=== PATIENT | male | born 1990 | race Caucasian/White ===

== ENCOUNTER → 2016-07-20 | Outpatient (CLI) | payer OTHER ==
[2016-07-20 10:10] LABS: BASO % 0.8 % (0.0-1.0); EOS # 0.2 K/mm3 (0.0-0.50); EOS % 3.2 % (0.0-3.0); LARGE UNSTAINED CELL # 0.1 K/mm3 (0.0-0.4); LARGE UNSTAINED CELL % 3.1 % (0.0-4.0); LYMPH # 2.7 K/mm3 (1.5-6.5); LYMPH % 54.7 % (24.0-44.0); MEAN CORPUSCULAR HEMOGLOBIN 29.6 pg (27.0-33.0); MEAN CORPUSCULAR HGB CONC 33.2 g/dl (32.0-36.5); MEAN CORPUSCULAR VOLUME 89.2 fl (80.0-96.0); MONO # 0.3 K/mm3 (0.0-0.8); MONO % 5.7 % (0.0-5.0); NEUTROPHILS # 1.5 K/mm3 (1.8-7.7); NEUTROPHILS % 32.5 % (36.0-66.0); PLATELET COUNT, AUTOMATED 149 k/mm3 (150-450); RED CELL DISTRIBUTION WIDTH 13.3 % (11.5-14.5); WHITE BLOOD COUNT 4.7 K/mm3 (4.0-10.0)
[2016-07-20 10:38] LABS: ALBUMIN 4.1 GM/DL (3.2-5.2); ALBUMIN/GLOBULIN RATIO 1.21 (1.00-1.93); ALKALINE PHOSPHATASE 56 U/L (45-117); ALT/SGPT 144 U/L (12-78); ANION GAP 5 MEQ/L (8-16); AST/SGOT 58 U/L (15-37); BILIRUBIN,TOTAL 0.4 MG/DL (0.2-1.0); BLOOD UREA NITROGEN 16 MG/DL (7-18); CALCIUM LEVEL 9.3 MG/DL (8.5-10.1); CARBON DIOXIDE LEVEL 29 MEQ/L (21-32); CHLORIDE LEVEL 107 MEQ/L (98-107); CREATININE FOR GFR 0.93 MG/DL (0.70-1.30); GLOMERULAR FILTRATION RATE > 60.0 (>60); GLUCOSE, FASTING 95 MG/DL (70-105); SODIUM LEVEL 141 MEQ/L (136-145); TOTAL PROTEIN 7.5 GM/DL (6.4-8.2)
== END ==
LOC: M LAB 09:26
PROVIDERS: ATTEND Nurse Practitioner Family
DX: Z02.83 Encounter for blood-alcohol and blood-drug test (principal)

== ENCOUNTER → 2016-08-13 | Outpatient (CLI) | payer OTHER ==
[2016-08-14 09:43] LABS: HEPATITIS B SURFACE ANTIBODY POSITIVE (POSITIVE)
[2016-08-18 08:06] LABS: ALT 342 IU/L (0-55); GGT 35 IU/L (0-65); HAPTOGLOBIN 108 mg/dL (34-200); HEPATITIS C QUANTITATION 91410 IU/mL (.); HEPATITIS C VIRUS GENOTYPE 1a (.); NECROINFLAM SCORE 0.88 (0.00-0.17); NECROINFLAMM GRADE A3-Severe activity (.); TOTAL BILIRUBIN 0.1 mg/dL (0.0-1.2)
== END ==
LOC: M LAB 10:20
PROVIDERS: ATTEND Nurse Practitioner Family
DX: B18.2 Chronic viral hepatitis C (principal); B16.9 Acute hepatitis B without delta-agent and without hepatic coma; B15.9 Hepatitis A without hepatic coma

== ENCOUNTER → 2016-09-17 | Outpatient (REF) | payer OTHER | LOC: M SFHCPLAZ 09:40 | PROVIDERS: ATTEND Internal Medicine Infectious Disease | DX: B18.2 Chronic viral hepatitis C (principal) ==

== ENCOUNTER → 2016-11-25 | Outpatient (CLI) | payer OTHER ==
[2016-11-25 12:28] LABS: ALBUMIN 3.9 GM/DL (3.2-5.2); ALBUMIN/GLOBULIN RATIO 1.11 (1.00-1.93); ALKALINE PHOSPHATASE 59 U/L (45-117); ALT/SGPT 42 U/L (12-78); AST/SGOT 22 U/L (15-37); BILIRUBIN,DIRECT < 0.1 MG/DL (0.0-0.2); BILIRUBIN,TOTAL 0.3 MG/DL (0.2-1.0); TOTAL PROTEIN 7.4 GM/DL (6.4-8.2)
[2016-11-27 10:13] LABS: HEPATITIS C QUANTITATION HCV Not Detected IU/mL (.)
== END ==
LOC: M LAB 09:41
PROVIDERS: ATTEND Nurse Practitioner Family
DX: B18.2 Chronic viral hepatitis C (principal)

== ENCOUNTER → 2017-04-27 | Outpatient (CLI) | payer OTHER ==
[2017-04-27 20:44] LABS: BASO % 0.5 % (0.0-1.0); EOS # 0.3 10^3/uL (0.0-0.50); EOS % 3.6 % (0.0-3.0); HEMATOCRIT 41.8 % (42.0-52.0); HEMOGLOBIN 13.8 g/dl (14.0-18.0); IMMATURE GRANULOCYTE % 0.2 % (0-0); LYMPH # 3.9 10^3/uL (1.5-6.5); LYMPH % 47.3 % (24.0-44.0); MEAN CORPUSCULAR HEMOGLOBIN 29.9 pg (27.0-33.0); MEAN CORPUSCULAR VOLUME 90.7 fl (80.0-96.0); MONO # 0.5 10^3/uL (0.0-0.8); MONO % 6.3 % (0.0-5.0); NEUTROPHILS # 3.5 10^3/uL (1.8-7.7); NEUTROPHILS % 42.1 % (36.0-66.0); PLATELET COUNT, AUTOMATED 302 10^3/uL (150-450); RED BLOOD COUNT 4.61 10^6/uL (4.30-6.10); RED CELL DISTRIBUTION WIDTH 12.6 % (11.5-14.5); WHITE BLOOD COUNT 8.3 10^3/uL (4.0-10.0)
[2017-04-27 21:01] LABS: ALBUMIN 4.1 GM/DL (3.2-5.2); ALBUMIN/GLOBULIN RATIO 1.14 (1.00-1.93); ALKALINE PHOSPHATASE 44 U/L (45-117); ALT/SGPT 23 U/L (12-78); AST/SGOT 22 U/L (7-37); BILIRUBIN,DIRECT < 0.1 MG/DL (0.0-0.2); BILIRUBIN,TOTAL 0.3 MG/DL (0.2-1.0); TOTAL PROTEIN 7.7 GM/DL (6.4-8.2)
[2017-04-30 10:16] LABS: HEPATITIS C QUANTITATION HCV Not Detected IU/mL (.)
== END ==
LOC: M LAB 17:35
DX: B18.2 Chronic viral hepatitis C (principal)
CPT/HCPCS: 80076

== ENCOUNTER → 2017-06-08 | Outpatient (CLI) | payer OTHER ==
[2017-06-08 10:26] LABS: HEMATOCRIT 40.2 % (42.0-52.0); HEMOGLOBIN 13.6 g/dl (14.0-18.0); MEAN CORPUSCULAR HEMOGLOBIN 29.8 pg (27.0-33.0); MEAN CORPUSCULAR HGB CONC 33.8 g/dl (32.0-36.5); PLATELET COUNT, AUTOMATED 201 10^3/uL (150-450); RED BLOOD COUNT 4.57 10^6/uL (4.30-6.10); RED CELL DISTRIBUTION WIDTH 12.3 % (11.5-14.5); WHITE BLOOD COUNT 6.2 10^3/uL (4.0-10.0)
[2017-06-08 11:34] LABS: ALBUMIN/GLOBULIN RATIO 1.21 (1.00-1.93); ALKALINE PHOSPHATASE 50 U/L (45-117); ALT/SGPT 26 U/L (12-78); ANION GAP 5 MEQ/L (8-16); AST/SGOT 23 U/L (7-37); BILIRUBIN,TOTAL 0.4 MG/DL (0.2-1.0); BLOOD UREA NITROGEN 14 MG/DL (7-18); CALCIUM LEVEL 9.3 MG/DL (8.5-10.1); CARBON DIOXIDE LEVEL 33 MEQ/L (21-32); CHLORIDE LEVEL 106 MEQ/L (98-107); CREATININE FOR GFR 0.74 MG/DL (0.70-1.30); GLOMERULAR FILTRATION RATE > 60.0 (>60); GLUCOSE, FASTING 96 MG/DL (70-100); POTASSIUM SERUM 4.4 MEQ/L (3.5-5.1); SODIUM LEVEL 144 MEQ/L (136-145); TOTAL PROTEIN 7.3 GM/DL (6.4-8.2)
[2017-06-08 12:29] LABS: CHLAMYDIA DNA AMPLIFICATION NEGATIVE (NEGATIVE); GC DNA AMPLIFICATION NEGATIVE (NEGATIVE)
[2017-06-09 10:36] LABS: HEPATITIS B SURFACE ANTIGEN NEGATIVE (NEGATIVE)
[2017-06-09 10:46] LABS: HIV 1&2 SCREEN CENTAUR NEGATIVE (NEGATIVE)
[2017-06-09 10:53] LABS: HEPATITIS C VIRUS ABY INDEX > 11.0 INDEX (<0.8)
== END ==
LOC: M LAB 09:56
DX: F11.20 Opioid dependence, uncomplicated (principal)
CPT/HCPCS: 93005

== ENCOUNTER 2017-11-05 15:20 | Emergency (ER) | payer OTHER ==
[2017-11-05] MEDS: predniSONE 20 MG TAB PO (17:05)
[2017-11-05] MEDS: IPRATROPIUM 0.5MG/ALBUTEROL 2.5MG INH SOL UD 3ML (DUONEB)(J7620) NEB (17:30)
[2017-11-05] MEDS: ALBUTEROL SULFATE 2.5 MG/0.5 ML INH NEB SOLN NEB (17:30)
== END 2017-11-05 18:02 | disposition home or self-care (01) ==
LOC: M ED 15:20
DX: J45.901 Unspecified asthma with (acute) exacerbation (principal); J06.9 Acute upper respiratory infection, unspecified; Z79.891 Long term (current) use of opiate analgesic; Z88.1 Allergy status to other antibiotic agents
CPT/HCPCS: 71046

== ENCOUNTER → 2018-03-08 | Outpatient (REF) | payer OTHER ==
[2018-03-08 18:12] LABS: ALBUMIN 3.9 GM/DL (3.2-5.2); ALBUMIN/GLOBULIN RATIO 1.11 (1.00-1.93); ALKALINE PHOSPHATASE 57 U/L (45-117); ALT/SGPT 33 U/L (12-78); ANION GAP 7 MEQ/L (8-16); AST/SGOT 16 U/L (7-37); BILIRUBIN,TOTAL 0.2 MG/DL (0.2-1.0); BLOOD UREA NITROGEN 19 MG/DL (7-18); CALCIUM LEVEL 8.7 MG/DL (8.5-10.1); CARBON DIOXIDE LEVEL 28 MEQ/L (21-32); CHLORIDE LEVEL 108 MEQ/L (98-107); CREATININE FOR GFR 0.94 MG/DL (0.70-1.30); GLOMERULAR FILTRATION RATE > 60.0 (>60); GLUCOSE, FASTING 91 MG/DL (70-100); POTASSIUM SERUM 3.9 MEQ/L (3.5-5.1); SODIUM LEVEL 143 MEQ/L (136-145); TOTAL PROTEIN 7.4 GM/DL (6.4-8.2)
[2018-03-08 18:32] LABS: BASO # 0.1 10^3/uL (0.0-0.2); BASO % 0.5 % (0.0-1.0); EOS # 0.3 10^3/uL (0.0-0.50); EOS % 2.6 % (0.0-3.0); HEMATOCRIT 41.6 % (42.0-52.0); IMMATURE GRANULOCYTE % 0.1 % (0-3.0); LYMPH # 3.2 10^3/uL (1.5-6.5); LYMPH % 32.5 % (24.0-44.0); MEAN CORPUSCULAR HEMOGLOBIN 29.9 pg (27.0-33.0); MEAN CORPUSCULAR HGB CONC 33.7 g/dl (32.0-36.5); MEAN CORPUSCULAR VOLUME 88.9 fl (80.0-96.0); MONO # 0.8 10^3/uL (0.0-0.8); MONO % 7.6 % (0.0-5.0); NEUTROPHILS # 5.6 10^3/uL (1.8-7.7); NEUTROPHILS % 56.7 % (36.0-66.0); PLATELET COUNT, AUTOMATED 247 10^3/uL (150-450); RED BLOOD COUNT 4.68 10^6/uL (4.30-6.10); RED CELL DISTRIBUTION WIDTH 13.2 % (11.5-14.5)
== END ==
LOC: M LAB REF 17:13
DX: Z13.9 Encounter for screening, unspecified (principal)
CPT/HCPCS: 84443

== ENCOUNTER → 2018-07-29 | Outpatient (REF) | payer OTHER ==
[~2018-07-29] MED LIST: CLON-412; FLUV100T2; IBUP80TA; MUCI600T37 PO; NICO2GUM40; NICO2GUM50 PO; POLY33503; PRED10TA2 PO; SUBO2MIS; SUBO8MIS; VENTAER; VENTAER INH
[2018-07-29 17:27] LABS: FREE THYROXINE INDEX 2.2 % (1.4-3.8); THYROID STIMULATING HORMONE 3.34 uIU/ML (0.358-3.740)
== END ==
LOC: M LAB REF 16:54
PROVIDERS: ATTEND Nurse Practitioner Family
DX: Z13.9 Encounter for screening, unspecified (principal)

== ENCOUNTER → 2018-08-02 | Outpatient (REF) | payer OTHER, MEDICAID | LOC: M LAB REF 19:01 | PROVIDERS: ATTEND Nurse Practitioner Family | DX: Z13.9 Encounter for screening, unspecified (principal) ==

== ENCOUNTER → 2020-09-05 | Outpatient (REF) | payer OTHER, MEDICAID ==
[2020-09-05 12:36] LABS: BASO % 0.7 % (0.0-1.0); EOS # 0.1 10^3/uL (0.0-0.5); EOS % 2.6 % (0.0-3.0); HEMATOCRIT 42.4 % (42.0-52.0); HEMOGLOBIN 13.9 g/dl (13.5-17.5); LYMPH # 2.2 10^3/uL (1.5-5.0); MEAN CORPUSCULAR HGB CONC 32.8 g/dl (32.0-36.5); MEAN CORPUSCULAR VOLUME 91.6 fl (80.0-96.0); MONO # 0.5 10^3/uL (0.0-0.8); MONO % 9.5 % (2.0-8.0); NEUTROPHILS # 2.6 10^3/uL (1.5-8.5); NEUTROPHILS % 46.8 % (36.0-66.0); PLATELET COUNT, AUTOMATED 222 10^3/uL (150-450); RED BLOOD COUNT 4.63 10^6/uL (4.30-6.10); WHITE BLOOD COUNT 5.5 10^3/uL (4.0-10.0)
[2020-09-05 13:18] LABS: ALBUMIN 4.1 GM/DL (3.2-5.2); ALT/SGPT 27 U/L (12-78); BILIRUBIN,TOTAL 0.5 MG/DL (0.2-1.0); BLOOD UREA NITROGEN 19 MG/DL (7-18); CALCIUM LEVEL 9.4 MG/DL (8.5-10.1); CARBON DIOXIDE LEVEL 30 MEQ/L (21-32); CHLORIDE LEVEL 107 MEQ/L (98-107); CHOLESTEROL LEVEL 191 MG/DL (<200); CREATININE FOR GFR 0.65 MG/DL (0.70-1.30); FREE T4 0.89 NG/DL (0.76-1.46); GLOMERULAR FILTRATION RATE > 60.0 (>60); GLUCOSE, FASTING 89 MG/DL (70-100); HDL CHOLESTEROL 71 MG/DL (>40); LDL CHOLESTEROL 108 MG/DL (<100); NON-HDL-C 120 MG/DL; POTASSIUM SERUM 4.4 MEQ/L (3.5-5.1); SODIUM LEVEL 141 MEQ/L (136-145); TOTAL PROTEIN 7.3 GM/DL (6.4-8.2); TRIGLYCERIDES LEVEL 60 MG/DL (<150)
[2020-09-05 13:29] LABS: TOTAL 25(OH) VITAMIN D 37.4 NG/ML (30.0-100.0)
[2020-09-05 14:26] LABS: HEMOGLOBIN A1c 5.3 %
== END ==
LOC: M LAB REF 11:19
PROVIDERS: ATTEND Nurse Practitioner Family
DX: Z00.01 Encounter for general adult medical examination with abnormal findings (principal); E02 Subclinical iodine-deficiency hypothyroidism; K21.9 Gastro-esophageal reflux disease without esophagitis; J45.909 Unspecified asthma, uncomplicated

== ENCOUNTER 2020-11-21 02:31 | Emergency (ER) | payer OTHER, MEDICAID ==
[~2020-11-21] VITALS: Ht 170.2 cm; Wt 86.0 kg
[2020-11-21 02:32] VITALS: BP 165/90
[2020-11-21 03:29] LABS: BASO % 0.4 % (0.0-1.0); EOS # 0.1 10^3/uL (0.0-0.5); EOS % 0.7 % (0.0-3.0); HEMATOCRIT 43.1 % (42.0-52.0); HEMOGLOBIN 14.4 g/dl (13.5-17.5); LYMPH # 1.9 10^3/uL (1.5-5.0); LYMPH % 26.7 % (24.0-44.0); MEAN CORPUSCULAR HEMOGLOBIN 30.1 pg (27.0-33.0); MEAN CORPUSCULAR HGB CONC 33.4 g/dl (32.0-36.5); MEAN CORPUSCULAR VOLUME 90.2 fl (80.0-96.0); MONO # 0.5 10^3/uL (0.0-0.8); MONO % 7.1 % (2.0-8.0); NEUTROPHILS # 4.7 10^3/uL (1.5-8.5); NEUTROPHILS % 64.8 % (36.0-66.0); PLATELET COUNT, AUTOMATED 238 10^3/uL (150-450); RED BLOOD COUNT 4.78 10^6/uL (4.30-6.10); WHITE BLOOD COUNT 7.2 10^3/uL (4.0-10.0)
[2020-11-21 04:00] LABS: BLOOD UREA NITROGEN 16 MG/DL (7-18); CALCIUM LEVEL 9.2 MG/DL (8.5-10.1); CARBON DIOXIDE LEVEL 28 MEQ/L (21-32); CHLORIDE LEVEL 106 MEQ/L (98-107); CK-MB VALUE MASS 1.8 NG/ML (<3.6); CPK CREATINE PHOSPHOKINASE 195 U/L (39-308); CREATININE FOR GFR 0.77 MG/DL (0.70-1.30); GLOMERULAR FILTRATION RATE > 60.0 (>60); GLUCOSE, FASTING 79 MG/DL (70-100); MB/CK RELATIVE INDEX 0.92 (< OR =4); POTASSIUM SERUM 3.8 MEQ/L (3.5-5.1); SODIUM LEVEL 141 MEQ/L (136-145); TROPONIN I < 0.02 NG/ML (< 0.10)
--- NOTE | 2020-11-21 07:40 | ECGEPIP ---
[facility] - ED Test Date: 2020-11-21 Pat Name: ADRIANNA GRIFFIN Department: Room: - Gender: Male Clinical Massage Therapist: LUIS F : 1990 Requested By: CASSIDY Brock Order Number: [id number] Reading MD: Chandan Ramirez Measurements Intervals [place] Rate: 88 P: 54 MN: 158 QRS: -18 QRSD: 100 T: 16 QT: 366 QTc: 442 Interpretive Statements Normal sinus rhythm MODERATE INTRAVENTRICULAR CONDUCTION DELAY NONSPECIFIC T WAVE ABNORMALITY(S) SIMILAR TO 06/08/17 Electronically Signed on 11-21-2020 7:39:49 EDT by Chandan Ramirez
== END 2020-11-21 04:39 | disposition left against medical advice (07) ==
LOC: M ED 02:31
DX: Z53.21 Procedure and treatment not carried out due to patient leaving prior to being seen by health care provider (principal)

== ENCOUNTER → 2021-01-29 | Outpatient (REF) | payer OTHER, MEDICAID | LOC: M LAB REF 18:24 | PROVIDERS: ATTEND Dermatology | DX: D23.62 Other benign neoplasm of skin of left upper limb, including shoulder (principal) ==

== ENCOUNTER 2021-05-07 21:14 | Inpatient (IN) | payer MEDICAID, OTHER ==
[~2021-05-07] VITALS: Ht 170.2 cm; Wt 87.7 kg
[~2021-05-07 21:14] MED LIST changes: -FLUV100T2; +FLUV100T25
[2021-05-07 23:16] LABS: BASO % 0.2 % (0.0-1.0); EOS # 0.1 10^3/uL (0.0-0.5); EOS % 0.5 % (0.0-3.0); HEMATOCRIT 39.7 % (42.0-52.0); HEMOGLOBIN 13.2 g/dl (13.5-17.5); LYMPH # 1.6 10^3/uL (1.5-5.0); LYMPH % 9.2 % (24.0-44.0); MEAN CORPUSCULAR HEMOGLOBIN 29.5 pg (27.0-33.0); MEAN CORPUSCULAR HGB CONC 33.2 g/dl (32.0-36.5); MEAN CORPUSCULAR VOLUME 88.8 fl (80.0-96.0); MONO % 11.1 % (2.0-8.0); NEUTROPHILS # 13.9 10^3/uL (1.5-8.5); NEUTROPHILS % 78.3 % (36.0-66.0); PLATELET COUNT, AUTOMATED 213 10^3/uL (150-450); RED BLOOD COUNT 4.47 10^6/uL (4.30-6.10); WHITE BLOOD COUNT 17.7 10^3/uL (4.0-10.0)
[2021-05-07 23:43] LABS: ERYTHROCYTE SEDIMENTATION RATE 44 mm/hr (0-15)
[2021-05-07 23:54] LABS: ALBUMIN 3.6 GM/DL (3.2-5.2); ALT/SGPT 54 U/L (12-78); BILIRUBIN,DIRECT 0.2 MG/DL (0.0-0.2); BILIRUBIN,TOTAL 0.4 MG/DL (0.2-1.0); BLOOD UREA NITROGEN 19 MG/DL (7-18); CALCIUM LEVEL 9.1 MG/DL (8.5-10.1); CARBON DIOXIDE LEVEL 28 MEQ/L (21-32); CHLORIDE LEVEL 104 MEQ/L (98-107); CREATININE FOR GFR 0.82 MG/DL (0.70-1.30); GLOMERULAR FILTRATION RATE > 60.0 (>60); GLUCOSE, FASTING 91 MG/DL (70-100); POTASSIUM SERUM 3.9 MEQ/L (3.5-5.1); SODIUM LEVEL 139 MEQ/L (136-145); TOTAL PROTEIN 7.1 GM/DL (6.4-8.2)
[2021-05-08] MEDS ORDERED: VANCOMYCIN HCL 1,000 MG, VIAL MATE ADAPTER 1 EACH in NS 250 ML IV ONE (00:30)
[2021-05-08] MEDS ORDERED: NS 1,000 ML IV ONE (00:35)
[2021-05-08] MEDS ORDERED: VANCOMYCIN HCL 1,750 MG in NS 250 ML IV ONE (00:35)
[2021-05-08] MEDS ORDERED: ACETAMINOPHEN TAB 650MG DOSE (2X325MG) PO PRN (01:10)
[2021-05-08] MEDS ORDERED: ONDANSETRON 4 MG ORAL DISINTEGRATING TAB PO PRN (01:10)
[2021-05-08] MEDS ORDERED: LORazepam 2 MG TAB PO PRN (01:10)
[2021-05-08] MEDS ORDERED: NICOTINE POLACRILEX 2 MG GUM PO PRN (01:15)
[2021-05-08] MEDS ORDERED: VANCOMYCIN HCL 750 MG, VIAL MATE ADAPTER 1 EACH in NS 250 ML IV ONE (01:30)
[2021-05-08 03:12] LABS: AMPHETAMINES LEVEL URINE NEGATIVE (NEGATIVE); BARBITURATES URINE NEGATIVE (NEGATIVE); BENZODIAZEPINES URINE NEGATIVE (NEGATIVE); CANNABINOIDS URINE NEGATIVE (NEGATIVE); COCAINE METABOLITE URINE NEGATIVE (NEGATIVE); METHADONE URINE NEGATIVE (NEGATIVE); OPIATES URINE POSITIVE (NEGATIVE); PHENCYCLIDINE URINE NEGATIVE (NEGATIVE)
[2021-05-08] MEDS ORDERED: HOME MED LIST COMPLETE! XX SCH (03:40)
[2021-05-08] MEDS ORDERED: PROAAER10 INH (03:40)
[2021-05-08] MEDS ORDERED: ACET-897 PO (03:40)
[2021-05-08] MEDS ORDERED: MONT10TA97 PO (03:40)
[2021-05-08] MEDS ORDERED: SUBO8MIS SL (03:40)
[2021-05-08] MEDS ORDERED: D31000TA2 PO (03:40)
[2021-05-08] MEDS ORDERED: FAMO20TA PO (03:40)
[2021-05-08] MEDS ORDERED: IBUP-1730 PO (03:40)
[2021-05-08] MEDS ORDERED: ALBUTEROL 90 MCG/ACT 8GM HFA INHALER INH PRN (05:00)
[2021-05-08 05:27] VITALS: BP 123/86
[2021-05-08] MEDS ORDERED: CEFTAROLINE FOSAMIL 600 MG in D5W MINI-BAG PLUS 50 ML IV SCH (06:00)
[2021-05-08] MEDS: KETOROLAC 30 MG/ML 1ML VIAL IV PRN ×2 (06:02→12:27)
[2021-05-08 08:25] LABS: BASO % 0.2 % (0.0-1.0); EOS # 0.1 10^3/uL (0.0-0.5); EOS % 0.7 % (0.0-3.0); HEMATOCRIT 39.4 % (42.0-52.0); HEMOGLOBIN 13.1 g/dl (13.5-17.5); LYMPH # 1.7 10^3/uL (1.5-5.0); LYMPH % 10.3 % (24.0-44.0); MEAN CORPUSCULAR HEMOGLOBIN 29.8 pg (27.0-33.0); MEAN CORPUSCULAR HGB CONC 33.2 g/dl (32.0-36.5); MEAN CORPUSCULAR VOLUME 89.7 fl (80.0-96.0); MONO % 10.8 % (2.0-8.0); NEUTROPHILS # 12.9 10^3/uL (1.5-8.5); NEUTROPHILS % 77.1 % (36.0-66.0); PLATELET COUNT, AUTOMATED 222 10^3/uL (150-450); RED BLOOD COUNT 4.39 10^6/uL (4.30-6.10); WHITE BLOOD COUNT 16.7 10^3/uL (4.0-10.0)
[2021-05-08 08:50] LABS: MONO # 1.8 10^3/uL (0.0-0.8)
[2021-05-08 09:09] LABS: ALBUMIN 3.5 GM/DL (3.2-5.2); ALT/SGPT 50 U/L (12-78); BILIRUBIN,TOTAL 0.6 MG/DL (0.2-1.0); BLOOD UREA NITROGEN 13 MG/DL (7-18); CARBON DIOXIDE LEVEL 24 MEQ/L (21-32); CHLORIDE LEVEL 106 MEQ/L (98-107); CHOLESTEROL LEVEL 120 MG/DL (<200); CHOLESTEROL RISK RATIO 1.846 (<5); CREATININE FOR GFR 0.75 MG/DL (0.70-1.30); GLOMERULAR FILTRATION RATE > 60.0 (>60); GLUCOSE, FASTING 95 MG/DL (70-100); HDL CHOLESTEROL 65 MG/DL (>40); LDL CHOLESTEROL 44 MG/DL (<100); NON-HDL-C 55 MG/DL; POTASSIUM SERUM 3.6 MEQ/L (3.5-5.1); SODIUM LEVEL 136 MEQ/L (136-145); TOTAL PROTEIN 7.9 GM/DL (6.4-8.2); TRIGLYCERIDES LEVEL 56 MG/DL (<150)
[2021-05-08 09:38] LABS: ERYTHROCYTE SEDIMENTATION RATE 44 mm/hr (0-15)
[2021-05-08] MEDS: MULTIVITAMINS/MINERALS THERAP 1 TAB PO SCH (09:59)
[2021-05-08] MEDS: FOLIC ACID 1 MG TAB PO SCH (10:00)
[2021-05-08] MEDS: THIAMINE 100 MG TAB PO SCH ×2 (10:00→20:02)
[2021-05-08] MEDS ORDERED: ISOVUE-370 76% 100ML VIAL As Ordered ONE (10:22)
[2021-05-08 11:40] LABS: VANCOMYCIN RANDOM 11.5 UG/ML
[2021-05-08] MEDS: VANCOMYCIN HCL 1,000 MG, VIAL MATE ADAPTER 1 EACH in NS 250 ML IV SCH ×2 (12:27→20:01)
[2021-05-08 14:00] VITALS: BP 153/86
[2021-05-08] MEDS ORDERED: HYDROMORPHONE HCL 0.5 MG/ 0.5 ML SYRINGE (J1170 PER 1) IV ONE (17:45)
[2021-05-08] MEDS ORDERED: MOM 30ML SUSPENSION UDC PO PRN (17:50)
[2021-05-08] MEDS ORDERED: SENOKOT S TAB PO PRN (17:50)
[2021-05-08] MEDS ORDERED: NALOXONE INJ 0.4MG/1ML VIAL (J2310 PER 1MG) IV PRN (17:50)
[2021-05-08] MEDS: MONTELUKAST 10 MG TAB PO SCH (18:03)
[2021-05-08] MEDS: FAMOTIDINE 20 MG TAB PO SCH (18:03)
[2021-05-08] MEDS: NS 1,000 ML IV SCH (18:04)
[2021-05-08] MEDS: KETOROLAC 30 MG/ML 1ML VIAL IV SCH ×2 (18:14→23:49)
[2021-05-08] MEDS: ACETAMINOPHEN 500 MG TAB PO SCH (20:01)
[2021-05-08] MEDS: BUPRENORPHINE/NALOXONE 8-2MG SUBLINGUAL TABLET(SUBOXONE) SL SCH (20:02)
[2021-05-08 22:00] VITALS: BP 120/81
[2021-05-09] MEDS: ACETAMINOPHEN 500 MG TAB PO SCH ×4 (03:38→21:21)
[2021-05-09] MEDS: VANCOMYCIN HCL 1,000 MG, VIAL MATE ADAPTER 1 EACH in NS 250 ML IV SCH ×3 (03:38→21:19)
[2021-05-09 05:57] VITALS: BP 140/81
[2021-05-09 05:58] VITALS: BP 140/81
[2021-05-09] MEDS: KETOROLAC 30 MG/ML 1ML VIAL IV SCH ×3 (06:10→18:22)
[2021-05-09] MEDS: MULTIVITAMINS/MINERALS THERAP 1 TAB PO SCH (08:40)
[2021-05-09] MEDS: THIAMINE 100 MG TAB PO SCH ×2 (08:40→21:19)
[2021-05-09] MEDS: FOLIC ACID 1 MG TAB PO SCH (08:40)
[2021-05-09 09:22] LABS: BASO % 0.2 % (0.0-1.0); EOS # 0.1 10^3/uL (0.0-0.5); EOS % 1.3 % (0.0-3.0); HEMATOCRIT 37.5 % (42.0-52.0); HEMOGLOBIN 12.3 g/dl (13.5-17.5); LYMPH # 1.4 10^3/uL (1.5-5.0); LYMPH % 15.2 % (24.0-44.0); MEAN CORPUSCULAR HEMOGLOBIN 29.6 pg (27.0-33.0); MEAN CORPUSCULAR HGB CONC 32.8 g/dl (32.0-36.5); MEAN CORPUSCULAR VOLUME 90.4 fl (80.0-96.0); MONO # 0.9 10^3/uL (0.0-0.8); NEUTROPHILS # 6.6 10^3/uL (1.5-8.5); NEUTROPHILS % 72.9 % (36.0-66.0); PLATELET COUNT, AUTOMATED 191 10^3/uL (150-450); RED BLOOD COUNT 4.15 10^6/uL (4.30-6.10); WHITE BLOOD COUNT 9.1 10^3/uL (4.0-10.0)
[2021-05-09] MEDS: NS 1,000 ML IV SCH (09:31)
[2021-05-09 10:00] LABS: BLOOD UREA NITROGEN 12 MG/DL (7-18); CALCIUM LEVEL 8.7 MG/DL (8.5-10.1); CARBON DIOXIDE LEVEL 25 MEQ/L (21-32); CHLORIDE LEVEL 108 MEQ/L (98-107); CREATININE FOR GFR 0.68 MG/DL (0.70-1.30); ERYTHROCYTE SEDIMENTATION RATE 20 mm/hr (0-15); GLOMERULAR FILTRATION RATE > 60.0 (>60); GLUCOSE, FASTING 105 MG/DL (70-100); SODIUM LEVEL 138 MEQ/L (136-145)
[2021-05-09] MEDS ORDERED: LIDOCAINE 1% MDV 20ML VIAL As Ordered ONE (10:13)
[2021-05-09 14:00] VITALS: BP 138/83
[2021-05-09] MEDS: MORPHINE 30 MG TAB **MSIR PO PRN ×2 (15:39→22:24)
[2021-05-09] MEDS: FAMOTIDINE 20 MG TAB PO SCH (18:22)
[2021-05-09] MEDS: SODIUM CHLORIDE 0.9% INJ 10 ML SYR IV SCH (18:22)
[2021-05-09] MEDS: MONTELUKAST 10 MG TAB PO SCH (18:22)
[2021-05-09 20:30] VITALS: BP 136/89
[2021-05-09] MEDS: BUPRENORPHINE/NALOXONE 8-2MG SUBLINGUAL TABLET(SUBOXONE) SL SCH (21:00)
[2021-05-10] MEDS: KETOROLAC 30 MG/ML 1ML VIAL IV SCH ×3 (00:59→12:16)
[2021-05-10] MEDS: VANCOMYCIN HCL 1,000 MG, VIAL MATE ADAPTER 1 EACH in NS 250 ML IV SCH (03:19)
[2021-05-10] MEDS: ACETAMINOPHEN 500 MG TAB PO SCH ×3 (03:20→15:28)
[2021-05-10] MEDS: NS 1,000 ML IV SCH (03:24)
[2021-05-10 05:43] VITALS: BP 150/79
[2021-05-10] MEDS: SODIUM CHLORIDE 0.9% INJ 10 ML SYR IV SCH (06:18)
[2021-05-10] MEDS: THIAMINE 100 MG TAB PO SCH (09:55)
[2021-05-10] MEDS: MULTIVITAMINS/MINERALS THERAP 1 TAB PO SCH (09:55)
[2021-05-10] MEDS: FOLIC ACID 1 MG TAB PO SCH (09:55)
[2021-05-10] MEDS ORDERED: BUPRENORPHINE/NALOXONE 8-2MG SUBLINGUAL TABLET(SUBOXONE) SL SCH (10:00)
[2021-05-10 10:39] LABS: BASO % 0.5 % (0.0-1.0); EOS # 0.1 10^3/uL (0.0-0.5); EOS % 1.7 % (0.0-3.0); HEMATOCRIT 34.6 % (42.0-52.0); HEMOGLOBIN 11.3 g/dl (13.5-17.5); LYMPH # 1.6 10^3/uL (1.5-5.0); LYMPH % 21.5 % (24.0-44.0); MEAN CORPUSCULAR HEMOGLOBIN 29.6 pg (27.0-33.0); MEAN CORPUSCULAR HGB CONC 32.7 g/dl (32.0-36.5); MEAN CORPUSCULAR VOLUME 90.6 fl (80.0-96.0); MONO # 0.8 10^3/uL (0.0-0.8); NEUTROPHILS % 65.9 % (36.0-66.0); PLATELET COUNT, AUTOMATED 247 10^3/uL (150-450); RED BLOOD COUNT 3.82 10^6/uL (4.30-6.10); WHITE BLOOD COUNT 7.5 10^3/uL (4.0-10.0)
[2021-05-10 10:57] LABS: BLOOD UREA NITROGEN 10 MG/DL (7-18); GLUCOSE, FASTING 96 MG/DL (70-100)
[2021-05-10 10:58] LABS: CALCIUM LEVEL 8.5 MG/DL (8.5-10.1); CARBON DIOXIDE LEVEL 26 MEQ/L (21-32); CHLORIDE LEVEL 111 MEQ/L (98-107); CREATININE FOR GFR 0.62 MG/DL (0.70-1.30); GLOMERULAR FILTRATION RATE > 60.0 (>60); POTASSIUM SERUM 3.6 MEQ/L (3.5-5.1); SODIUM LEVEL 142 MEQ/L (136-145)
[2021-05-10] MEDS: NAFCILLIN SOD 2 GM in D5W MINI-BAG PLUS 50 ML IV SCH ×2 (12:15→15:28)
[2021-05-10] MEDS: SODIUM CHLORIDE 0.9% INJ 10 ML SYR IV PRN ×2 (13:07→14:20)
[2021-05-10] MEDS: MORPHINE 30 MG TAB **MSIR PO PRN (13:17)
[2021-05-10 14:00] VITALS: BP 174/99
[2021-05-10] MEDS ORDERED: diazePAM 10MG/2ML SYRINGE (J3360 PER 5MG) IV ONE (15:00)
[2021-05-10] MEDS ORDERED: BACITAB PO (16:37)
[2021-05-10] MEDS ORDERED: BACT800T5 PO (16:37)
[2021-05-10] MEDS ORDERED: CEPH500C PO (16:37)
== END 2021-05-10 17:12 | disposition home or self-care (01) | DRG 383 ==
LOC: M ED 21:14 → M ED INP 05-08 01:09 → ENRESERV 05-08 05:10 → M MSPAV 05-08 05:27
PROVIDERS: ADMIT Internal Medicine; ATTEND General Practice
PROC: 05HA33Z Insertion of Infusion Device into Left Brachial Vein, Percutaneous Approach (ICD-10-PCS; principal; 2021-05-09 10:00)
DX: L03.113 Cellulitis of right upper limb (principal); I10 Essential (primary) hypertension; J45.909 Unspecified asthma, uncomplicated; F11.13 Opioid abuse with withdrawal; F17.290 Nicotine dependence, other tobacco product, uncomplicated; F10.10 Alcohol abuse, uncomplicated; Z20.822 Contact with and (suspected) exposure to COVID-19; Z79.899 Other long term (current) drug therapy; Z88.1 Allergy status to other antibiotic agents; Z91.19 Patient's noncompliance with other medical treatment and regimen

== ENCOUNTER → 2021-10-13 | Outpatient (REF) | payer OTHER ==
[~2021-10-13] MED LIST changes: +ACET-897 PO; +BACITAB PO; +BACT800T5 PO; +CEPH500C PO; +FAMO20TA PO; +IBUP-1730 PO; +MONT10TA97 PO; +PROAAER10 INH; +SUBO8MIS SL; +VITA100093 PO
== END ==
LOC: M SFHCDERM 13:46
PROVIDERS: ATTEND Physician Assistant
DX: D23.71 Other benign neoplasm of skin of right lower limb, including hip (principal)

== ENCOUNTER → 2022-03-18 | Outpatient (REF) | payer OTHER, MEDICAID ==
[2022-03-18 18:33] LABS: THYROID STIMULATING HORMONE 4.481 uIU/ML (0.55-4.78)
[2022-03-18 18:34] LABS: FREE T4 1.03 NG/DL (0.89-1.76)
[2022-03-20 15:09] LABS: TESTOSTERONE FREE (DIRECT) 16.8 pg/mL (8.7-25.1)
== END ==
LOC: M LAB REF 16:36
PROVIDERS: ATTEND Nurse Practitioner Family
DX: E29.1 Testicular hypofunction (principal); E03.9 Hypothyroidism, unspecified

== ENCOUNTER → 2022-07-21 | Outpatient (REF) | payer OTHER, MEDICAID ==
[2022-07-21 17:47] LABS: FREE T4 0.87 NG/DL (0.89-1.76); THYROID STIMULATING HORMONE 3.647 uIU/ML (0.55-4.78)
[2022-07-21 18:19] LABS: HIV 1&2 SCREEN CENTAUR NEGATIVE (NEGATIVE)
[2022-07-21 19:02] LABS: HEPATITIS C VIRUS ABY INDEX > 11.0 INDEX (<0.8)
== END ==
LOC: M LAB REF 16:17
PROVIDERS: ATTEND Nurse Practitioner Family
DX: E03.9 Hypothyroidism, unspecified (principal); Z11.59 Encounter for screening for other viral diseases; Z11.4 Encounter for screening for human immunodeficiency virus [HIV]

== ENCOUNTER 2023-02-22 07:56 | Emergency (ER) | payer OTHER, SELFPAY ==
[~2023-02-22] VITALS: Ht 170.2 cm; Wt 95.7 kg
[2023-02-22] MEDS ORDERED: LEVO30TA PO (08:07)
[2023-02-22] MEDS ORDERED: ISOVUE-370 76% 100ML VIAL As Ordered ONE (08:54)
[2023-02-22 08:56] LABS: BASO % 0.6 % (0.0-1.0); EOS # 0.2 10^3/uL (0.0-0.5); EOS % 3.8 % (0.0-3.0); HEMATOCRIT 39.5 % (42.0-52.0); HEMOGLOBIN 13.5 g/dl (13.5-17.5); LYMPH # 1.8 10^3/uL (1.5-5.0); LYMPH % 34.6 % (24.0-44.0); MEAN CORPUSCULAR HEMOGLOBIN 31.3 pg (27.0-33.0); MEAN CORPUSCULAR HGB CONC 34.2 g/dl (32.0-36.5); MEAN CORPUSCULAR VOLUME 91.4 fl (80.0-96.0); MONO # 0.5 10^3/uL (0.0-0.8); MONO % 9.7 % (2.0-8.0); NEUTROPHILS # 2.7 10^3/uL (1.5-8.5); NEUTROPHILS % 50.9 % (36.0-66.0); PLATELET COUNT, AUTOMATED 197 10^3/uL (150-450); RED BLOOD COUNT 4.32 10^6/uL (4.30-6.10); WHITE BLOOD COUNT 5.3 10^3/uL (4.0-10.0)
[2023-02-22 09:21] LABS: INR 1.03; PROTHROMBIN TIME 13.2 SECONDS (12.5-14.5)
[2023-02-22 09:22] LABS: CK-MB VALUE MASS 3.3 NG/ML (<3.6)
[2023-02-22 09:24] LABS: BLOOD UREA NITROGEN 18 MG/DL (9-23); CALCIUM LEVEL 9.1 MG/DL (8.5-10.1); CARBON DIOXIDE LEVEL 28 MMOL/L (20-31); CHLORIDE LEVEL 105 MMOL/L (98-107); CREATININE FOR GFR 0.75 MG/DL (0.70-1.30); GLOMERULAR FILTRATION RATE > 60.0 (>60); GLUCOSE, FASTING 106 MG/DL (60-100); POTASSIUM SERUM 3.9 MMOL/L (3.5-5.1); SODIUM LEVEL 143 MMOL/L (136-145)
[2023-02-22 09:26] LABS: CPK CREATINE PHOSPHOKINASE 226 U/L (46-171); MB/CK RELATIVE INDEX 1.46 (< OR =4)
[2023-02-22 09:29] LABS: ALBUMIN 3.8 G/DL (3.2-5.2); ALKALINE PHOSPHATASE 36 U/L (46-116); ALT/SGPT 47 U/L (7.0-40); AST/SGOT 57 U/L (<34); BILIRUBIN,DIRECT < 0.1 MG/DL (<0.4); BILIRUBIN,TOTAL 0.3 MG/DL (0.3-1.2); LIPASE 37 U/L (12-53); THYROID STIMULATING HORMONE 7.586 uIU/ML (0.55-4.78); TOTAL PROTEIN 6.9 G/DL (5.7-8.2)
[2023-02-22 10:00] LABS: CK-MB VALUE MASS 2.4 NG/ML (<3.6)
[2023-02-22 10:02] LABS: CPK CREATINE PHOSPHOKINASE 196 U/L (46-171); MB/CK RELATIVE INDEX 1.22 (< OR =4)
[2023-02-22 11:00] VITALS: BP 123/67; TEMP 97.9; O2SAT 96
== END 2023-02-22 11:14 | disposition home or self-care (01) ==
LOC: M ED 07:56
DX: R07.9 Chest pain, unspecified (principal); R10.9 Unspecified abdominal pain; F10.10 Alcohol abuse, uncomplicated; F19.10 Other psychoactive substance abuse, uncomplicated; E78.5 Hyperlipidemia, unspecified; F17.200 Nicotine dependence, unspecified, uncomplicated; Z88.1 Allergy status to other antibiotic agents; Z86.16 Personal history of COVID-19; Z79.52 Long term (current) use of systemic steroids; Z79.810 Long term (current) use of selective estrogen receptor modulators (SERMs); Z79.899 Other long term (current) drug therapy
CPT/HCPCS: 36415; 71045; 71275; 74177; 80047; 80048; 80076; 82550; 82553; 83690; 84439; 84443; 85025; 85610; 85730; 93005; 93041; 94760; 99285; Q9967

== ENCOUNTER → 2024-01-24 | Outpatient (REF) | payer OTHER ==
[~2024-01-24] MED LIST changes: +LEVO30TA PO
[2024-01-24 13:38] LABS: BASO % 0.6 % (0.0-1.0); EOS # 0.1 10^3/uL (0.0-0.5); EOS % 2.7 % (0.0-3.0); HEMATOCRIT 42.5 % (42.0-52.0); HEMOGLOBIN 14.1 g/dl (13.5-17.5); LYMPH # 1.9 10^3/uL (1.5-5.0); LYMPH % 37.5 % (24.0-44.0); MEAN CORPUSCULAR HEMOGLOBIN 30.3 pg (27.0-33.0); MEAN CORPUSCULAR HGB CONC 33.2 g/dl (32.0-36.5); MEAN CORPUSCULAR VOLUME 91.4 fl (80.0-96.0); MONO # 0.6 10^3/uL (0.0-0.8); MONO % 12.2 % (2.0-8.0); NEUTROPHILS # 2.4 10^3/uL (1.5-8.5); NEUTROPHILS % 46.8 % (36.0-66.0); PLATELET COUNT, AUTOMATED 245 10^3/uL (150-450); RED BLOOD COUNT 4.65 10^6/uL (4.30-6.10); WHITE BLOOD COUNT 5.2 10^3/uL (4.0-10.0)
[2024-01-24 13:42] LABS: ALKALINE PHOSPHATASE 46 U/L (46-116); ALT/SGPT 73 U/L (7.0-40); AST/SGOT 39 U/L (<34); BILIRUBIN,TOTAL 0.6 MG/DL (0.3-1.2); BLOOD UREA NITROGEN 22 MG/DL (9-23); CALCIUM LEVEL 9.4 MG/DL (8.5-10.1); CARBON DIOXIDE LEVEL 28 MMOL/L (20-31); CHLORIDE LEVEL 103 MMOL/L (98-107); CHOLESTEROL LEVEL 206 MG/DL (<200); CHOLESTEROL RISK RATIO 3.18 (<5); CREATININE FOR GFR 0.72 MG/DL (0.70-1.30); GLOMERULAR FILTRATION RATE > 60.0 (>60); GLUCOSE, FASTING 91 MG/DL (60-100); HDL CHOLESTEROL 64.6 MG/DL (>40); LDL CHOLESTEROL 128.2 MG/DL (<100); MAGNESIUM LEVEL 1.9 MG/DL (1.8-2.4); NON-HDL-C 141.4 MG/DL; POTASSIUM SERUM 4.1 MMOL/L (3.5-5.1); SODIUM LEVEL 139 MMOL/L (136-145); TOTAL PROTEIN 7.2 G/DL (5.7-8.2); TRIGLYCERIDES LEVEL 66 MG/DL (<150)
[2024-01-24 13:47] LABS: THYROID STIMULATING HORMONE 3.735 uIU/ML (0.55-4.78)
[2024-01-24 13:48] LABS: TOTAL 25(OH) VITAMIN D 39.3 NG/ML (20.0-100.0)
[2024-01-24 14:12] LABS: HIV 1&2 SCREEN NEGATIVE (NEGATIVE)
[2024-01-24 14:22] LABS: HEPATITIS C VIRUS ABY INDEX > 11.00 INDEX (<0.8)
[2024-01-24 14:32] LABS: GC DNA AMPLIFICATION NEGATIVE (NEGATIVE)
[2024-01-25 09:32] LABS: HCV RNA QUANTITATION <15 NOT DETECTED IU/mL (NOT DETECTED); HCV RNA log10 <1.18 NOT DETECTED Log IU/mL (NOT DETECTED)
== END ==
LOC: M LAB REF 12:19
PROVIDERS: ATTEND Nurse Practitioner Family
DX: Z11.3 Encounter for screening for infections with a predominantly sexual mode of transmission (principal); Z11.4 Encounter for screening for human immunodeficiency virus [HIV]; Z11.59 Encounter for screening for other viral diseases; E66.9 Obesity, unspecified; E55.9 Vitamin D deficiency, unspecified

== ENCOUNTER → 2024-06-28 | Outpatient (CLI) | payer OTHER ==
[~2024-06-28] MED LIST changes: +FLUV100T20; -FLUV100T25
[2024-06-28 15:09] LABS: ALBUMIN 4.2 G/DL (3.2-5.2); BLOOD UREA NITROGEN 24 MG/DL (9-23); CALCIUM LEVEL 9.4 MG/DL (8.5-10.1); CARBON DIOXIDE LEVEL 28 MMOL/L (20-31); CHLORIDE LEVEL 106 MMOL/L (98-107); CREATININE FOR GFR 0.78 MG/DL (0.70-1.30); GLOMERULAR FILTRATION RATE > 60.0 (>60); GLUCOSE, FASTING 101 MG/DL (60-100); MAGNESIUM LEVEL 1.9 MG/DL (1.8-2.4); PHOSPHORUS LEVEL 3.6 MG/DL (2.5-4.9); POTASSIUM SERUM 3.9 MMOL/L (3.5-5.1); SODIUM LEVEL 143 MMOL/L (136-145)
== END ==
LOC: M LAB 14:12
PROVIDERS: ATTEND Internal Medicine Cardiovascular Disease
DX: I10 Essential (primary) hypertension (principal); R06.02 Shortness of breath; R94.31 Abnormal electrocardiogram [ECG] [EKG]

== ENCOUNTER → 2024-07-20 | Outpatient (REF) | payer OTHER ==
[2024-07-20 18:37] LABS: ALBUMIN 4.4 G/DL (3.2-5.2); BLOOD UREA NITROGEN 20 MG/DL (9-23); CALCIUM LEVEL 9.5 MG/DL (8.5-10.1); CARBON DIOXIDE LEVEL 31 MMOL/L (20-31); CHLORIDE LEVEL 101 MMOL/L (98-107); CREATININE FOR GFR 0.77 MG/DL (0.70-1.30); GLOMERULAR FILTRATION RATE > 60.0 (>60); GLUCOSE, FASTING 88 MG/DL (60-100); POTASSIUM SERUM 3.7 MMOL/L (3.5-5.1); SODIUM LEVEL 139 MMOL/L (136-145)
== END ==
LOC: M LABDRWAD 17:43
PROVIDERS: ATTEND Internal Medicine Cardiovascular Disease
DX: I10 Essential (primary) hypertension (principal); R94.31 Abnormal electrocardiogram [ECG] [EKG]

== ENCOUNTER → 2024-07-27 | Outpatient (CLI) | payer OTHER | LOC: M CARPUL 09:57 | PROVIDERS: ATTEND Internal Medicine Cardiovascular Disease | DX: R07.9 Chest pain, unspecified (principal); R06.02 Shortness of breath; R94.31 Abnormal electrocardiogram [ECG] [EKG] ==

== ENCOUNTER → 2024-08-28 | Outpatient (CLI) | payer OTHER ==
[2024-08-28 16:23] LABS: BASO % 0.6 % (0.0-1.0); EOS # 0.1 10^3/uL (0.0-0.5); EOS % 1.8 % (0.0-3.0); HEMATOCRIT 43.2 % (42.0-52.0); HEMOGLOBIN 14.5 g/dl (13.5-17.5); LYMPH # 1.7 10^3/uL (1.5-5.0); LYMPH % 24.8 % (24.0-44.0); MEAN CORPUSCULAR HEMOGLOBIN 31.9 pg (27.0-33.0); MEAN CORPUSCULAR HGB CONC 33.6 g/dl (32.0-36.5); MEAN CORPUSCULAR VOLUME 94.9 fl (80.0-96.0); MONO # 0.7 10^3/uL (0.0-0.8); MONO % 10.3 % (2.0-8.0); NEUTROPHILS # 4.2 10^3/uL (1.5-8.5); NEUTROPHILS % 62.2 % (36.0-66.0); PLATELET COUNT, AUTOMATED 225 10^3/uL (150-450); RED BLOOD COUNT 4.55 10^6/uL (4.30-6.10); WHITE BLOOD COUNT 6.8 10^3/uL (4.0-10.0)
[2024-08-28 16:57] LABS: ALBUMIN 4.2 G/DL (3.2-5.2); ALKALINE PHOSPHATASE 55 U/L (40-129); ALT/SGPT 114 U/L (7.0-40); AST/SGOT 52 U/L (<34); BILIRUBIN,TOTAL 0.4 MG/DL (0.3-1.2); BLOOD UREA NITROGEN 15 MG/DL (9-23); CALCIUM LEVEL 9.4 MG/DL (8.5-10.1); CARBON DIOXIDE LEVEL 28 MMOL/L (20-31); CHLORIDE LEVEL 104 MMOL/L (98-107); CHOLESTEROL LEVEL 212 MG/DL (<200); CHOLESTEROL RISK RATIO 2.69 (<5); CREATININE FOR GFR 0.71 MG/DL (0.70-1.30); GLOMERULAR FILTRATION RATE > 90.0 (>60); GLUCOSE, FASTING 83 MG/DL (60-100); HDL CHOLESTEROL 78.8 MG/DL (>40); NON-HDL-C 133.2 MG/DL; POTASSIUM SERUM 3.6 MMOL/L (3.5-5.1); SODIUM LEVEL 141 MMOL/L (136-145); TOTAL PROTEIN 7.4 G/DL (5.7-8.2); TRIGLYCERIDES LEVEL 121 MG/DL (<150)
[2024-08-28 16:59] LABS: VITAMIN B12 LEVEL 589 PG/ML (211-911)
[2024-08-28 17:05] LABS: FOLATE 13.7 NG/ML (>5.4)
== END ==
LOC: M LAB 14:48
PROVIDERS: ATTEND Nurse Practitioner Family
DX: F10.20 Alcohol dependence, uncomplicated (principal); E66.9 Obesity, unspecified

== ENCOUNTER → 2024-09-05 | Outpatient (CLI) | payer OTHER | LOC: M PLAIMG 09:53 | PROVIDERS: ATTEND Internal Medicine Cardiovascular Disease | DX: R06.02 Shortness of breath (principal); R94.31 Abnormal electrocardiogram [ECG] [EKG] ==

== ENCOUNTER → 2024-12-07 | Outpatient (CLI) | payer OTHER ==
[2024-12-07 14:11] LABS: CALCIUM LEVEL 9.4 MG/DL (8.5-10.1); CARBON DIOXIDE LEVEL 30 MMOL/L (20-31); CHLORIDE LEVEL 101 MMOL/L (98-107); CREATININE FOR GFR 0.83 MG/DL (0.70-1.30); GLOMERULAR FILTRATION RATE > 90.0 (>60); POTASSIUM SERUM 3.9 MMOL/L (3.5-5.1); SODIUM LEVEL 142 MMOL/L (136-145)
== END ==
LOC: M SLEEP HO 12:24
PROVIDERS: ATTEND Physician Assistant
DX: G47.33 Obstructive sleep apnea (adult) (pediatric) (principal); R06.02 Shortness of breath; I10 Essential (primary) hypertension

== ENCOUNTER → 2024-12-08 | Outpatient (CLI) | payer OTHER ==
[2024-12-08 09:38] LABS: BASO # 0.0 10^3/uL (0.0-0.2); BASO % 0.7 % (0.0-1.0); EOS # 0.2 10^3/uL (0.0-0.5); EOS % 3.3 % (0.0-3.0); LYMPH # 1.9 10^3/uL (1.5-5.0); LYMPH % 32.5 % (24.0-44.0); MONO # 0.6 10^3/uL (0.0-0.8); MONO % 11.2 % (2.0-8.0); NEUTROPHILS # 3.0 10^3/uL (1.5-8.5); NEUTROPHILS % 52.0 % (36.0-66.0); PLATELET COUNT, AUTOMATED 238 10^3/uL (150-450)
[2024-12-08 09:43] LABS: APPEARANCE, URINE CLEAR (CLEAR); BACTERIA, URINE AUTO NEGATIVE (NEGATIVE); BILIRUBIN, URINE AUTO NEGATIVE (NEGATIVE); BLOOD, URINE BLOOD NEGATIVE (NEGATIVE); GLUCOSE, URINE (UA) AUTO NEGATIVE (NEGATIVE); KETONE, URINE AUTO NEGATIVE (NEGATIVE); LEUKOCYTE ESTERASE, URINE AUTO NEGATIVE (NEGATIVE); MUCUS, URINE MODERATE (NEGATIVE); NITRITE, URINE AUTO NEGATIVE (NEGATIVE); PROTEIN, URINE AUTO NEGATIVE (NEGATIVE); RBC, URINE AUTO 1 /HPF (0-3); SPECIFIC GRAVITY URINE AUTO 1.023 (1.002-1.035); SQUAMOUS EPITHELIAL CELL UR AU 0 /HPF (0-6); UROBILINOGEN, URINE AUTO 0.2 mg/dL (0.0-2.0); WBC, URINE AUTO 1 /HPF (0-3)
[2024-12-08 10:44] LABS: ESTIMATED AVERAGE GLUCOSE 105.0 MG/DL (60-110)
== END ==
LOC: M LAB 08:51
PROVIDERS: ATTEND Physician Assistant
DX: F52.21 Male erectile disorder (principal)

== ENCOUNTER → 2025-01-11 | Outpatient (REF) | payer OTHER | LOC: M LAB REF 13:19 → M LABDRWAD 13:19 | PROVIDERS: ATTEND Physician Assistant | DX: R79.89 Other specified abnormal findings of blood chemistry (principal) ==

== ENCOUNTER → 2025-01-22 | Outpatient (CLI) | payer OTHER | LOC: M RAD 17:15 | PROVIDERS: ATTEND Student in an Organized Health Care Education/Training Program | DX: R05.1 Acute cough (principal) ==

== ENCOUNTER → 2025-01-25 | Outpatient (REF) | payer OTHER | LOC: M LABDRWAD 13:01 | PROVIDERS: ATTEND Physician Assistant | DX: R79.89 Other specified abnormal findings of blood chemistry (principal) ==

== ENCOUNTER 2025-01-30 22:04 | Inpatient (IN) | payer OTHER ==
[~2025-01-30] VITALS: Ht 170.2 cm; Wt 107.5 kg
[2025-01-30 23:21] LABS: BASO # 0.1 10^3/uL (0.0-0.2); BASO % 0.5 % (0.0-1.0); EOS # 0.1 10^3/uL (0.0-0.5); EOS % 1.4 % (0.0-3.0); LYMPH # 2.7 10^3/uL (1.5-5.0); LYMPH % 27.3 % (24.0-44.0); MONO # 0.8 10^3/uL (0.0-0.8); MONO % 8.0 % (2.0-8.0); NEUTROPHILS # 6.3 10^3/uL (1.5-8.5); NEUTROPHILS % 62.3 % (36.0-66.0); PLATELET COUNT, AUTOMATED 294 10^3/uL (150-450)
[2025-01-30 23:45] LABS: ALT/SGPT 168 U/L (7.0-40); AST/SGOT 103 U/L (<34); CALCIUM LEVEL 9.4 MG/DL (8.5-10.1); CARBON DIOXIDE LEVEL 26 MMOL/L (20-31); CHLORIDE LEVEL 103 MMOL/L (98-107); CREATININE FOR GFR 0.65 MG/DL (0.70-1.30); GLOMERULAR FILTRATION RATE > 90.0 (>60); POTASSIUM SERUM 4.0 MMOL/L (3.5-5.1); SODIUM LEVEL 143 MMOL/L (136-145)
[2025-01-31] MEDS: ONDANSETRON 4MG 2ML VIAL IV ONE (02:15)
[2025-01-31] MEDS: NS (Normal Saline) 0.9% 1,000 ML IV ONE (02:16)
[2025-01-31] MEDS ORDERED: ISOVUE-370 76% 100 ML VIAL As Ordered ONE (02:45)
[2025-01-31 02:51] LABS: ETHYL ALCOHOL (ETHANOL) 0.133 % (0.000-0.010)
[2025-01-31] MEDS: MORPHINE 4 MG/ML 1 ML VIAL IV PRN ×2 (02:52→08:06)
[2025-01-31] MEDS: KETOROLAC 30 MG/ML 1 ML VIAL IV ONE (04:57)
[2025-01-31] MEDS: LR 1,000 ML IV SCH ×2 (04:58→20:10)
[2025-01-31] MEDS: HYDROMORPHONE HCL 0.5 MG/0.5 ML SYRINGE IV PRN ×2 (05:53→15:34)
[2025-01-31] MEDS ORDERED: MOM 30 ML SUSPENSION UDC PO PRN (06:05)
[2025-01-31] MEDS ORDERED: MORPHINE 4 MG/ML 1 ML VIAL IV PRN ×3 (06:35→07:40)
[2025-01-31] MEDS: ONDANSETRON 4MG 2ML VIAL IV PRN (06:44)
[2025-01-31] MEDS ORDERED: THIAMINE 100 MG TAB PO SCH (07:00)
[2025-01-31] MEDS ORDERED: BUPR1FIL SL (07:07)
[2025-01-31] MEDS ORDERED: ALBU8.5H INH (07:09)
[2025-01-31] MEDS ORDERED: LOSA100T46 PO (07:36)
[2025-01-31] MEDS ORDERED: ALBU2.5V10 INH (07:37)
[2025-01-31] MEDS ORDERED: PANT20TA6 PO (07:39)
[2025-01-31] MEDS ORDERED: LEVO50TA5 PO (07:39)
[2025-01-31] MEDS ORDERED: HYDR-3490 PO (07:41)
[2025-01-31] MEDS ORDERED: BUPR-766 PO (07:41)
[2025-01-31] MEDS ORDERED: HOME MED LIST COMPLETE! XX SCH (07:45)
[2025-01-31] MEDS: PANTOPRAZOLE 40MG VIAL IV SCH (08:04)
[2025-01-31] MEDS ORDERED: MULTIVITAMINS/MINERALS THERAP 1 TAB PO SCH (09:00)
[2025-01-31] MEDS ORDERED: FOLIC ACID 1 MG TAB PO SCH (09:00)
[2025-01-31] MEDS: FOLIC ACID IV ONE (09:53)
[2025-01-31] MEDS: THIAMINE IV ONE (09:53)
[2025-01-31] MEDS: MULTIVITAMIN ADULT IV ONE (09:53)
[2025-01-31] MEDS: [UNRECOGNIZED DRUG - OTHER] IV ONE (09:53)
[2025-01-31 10:10] LABS: BASO # 0.0 10^3/uL (0.0-0.2); BASO % 0.3 % (0.0-1.0); EOS # 0.0 10^3/uL (0.0-0.5); EOS % 0.1 % (0.0-3.0); LYMPH # 0.9 10^3/uL (1.5-5.0); LYMPH % 6.0 % (24.0-44.0); MONO # 1.4 10^3/uL (0.0-0.8); MONO % 8.8 % (2.0-8.0); NEUTROPHILS # 13.3 10^3/uL (1.5-8.5); NEUTROPHILS % 84.2 % (36.0-66.0); PLATELET COUNT, AUTOMATED 333 10^3/uL (150-450)
[2025-01-31 10:37] LABS: ALT/SGPT 140 U/L (7.0-40); AST/SGOT 73 U/L (<34); CALCIUM LEVEL 9.4 MG/DL (8.5-10.1); CARBON DIOXIDE LEVEL 23 MMOL/L (20-31); CHLORIDE LEVEL 100 MMOL/L (98-107); CREATININE FOR GFR 0.69 MG/DL (0.70-1.30); GLOMERULAR FILTRATION RATE > 90.0 (>60); MAGNESIUM LEVEL 1.6 MG/DL (1.8-2.4); POTASSIUM SERUM 3.8 MMOL/L (3.5-5.1); SODIUM LEVEL 140 MMOL/L (136-145)
[2025-01-31 14:51] VITALS: BP 150/103; TEMP 97.2; O2SAT 96
[2025-01-31] MEDS ORDERED: HYDROMORPHONE HCL 0.5 MG/0.5 ML SYRINGE IV PRN (15:00)
[2025-01-31] MEDS: LACTATED RINGER'S 1000 ML IV ONE (16:18)
[2025-01-31] MEDS: MAG SULF 1GM/100ML (MAG RUN) 1 GM in IV 1 EA IV SCH (17:27)
[2025-01-31] MEDS ORDERED: LR 1,000 ML IV SCH (18:00)
[2025-01-31 18:50] VITALS: BP 160/106; TEMP 97.2; O2SAT 97
[2025-01-31] MEDS: PIPERACILLIN/TAZOBACTAM SOD 3.375 GM in DEXTROSE 5% (D5W) ADV/MINI-BAG 50 ML IV SCH (19:14)
[2025-01-31 19:38] VITALS: BP 142/81; TEMP 100.4; O2SAT 94
[2025-01-31 23:49] VITALS: BP 139/103; TEMP 99; O2SAT 95
[2025-02-01] VITALS (10 sets, daily range): BP systolic 139–164; BP diastolic 84–106; TEMP 98.3–100.5; O2SAT 96–100
[2025-02-01 06:06] LABS: BASO # 0.0 10^3/uL (0.0-0.2); BASO % 0.1 % (0.0-1.0); EOS # 0.0 10^3/uL (0.0-0.5); EOS % 0.0 % (0.0-3.0); LYMPH # 1.0 10^3/uL (1.5-5.0); LYMPH % 5.7 % (24.0-44.0); MONO # 1.5 10^3/uL (0.0-0.8); MONO % 9.2 % (2.0-8.0); NEUTROPHILS # 14.0 10^3/uL (1.5-8.5); NEUTROPHILS % 84.3 % (36.0-66.0); PLATELET COUNT, AUTOMATED 244 10^3/uL (150-450)
[2025-02-01 06:37] LABS: ALT/SGPT 83 U/L (7.0-40); AST/SGOT 54 U/L (<34); CALCIUM LEVEL 7.0 MG/DL (8.5-10.1); CARBON DIOXIDE LEVEL 25 MMOL/L (20-31); CHLORIDE LEVEL 98 MMOL/L (98-107); CREATININE FOR GFR 0.67 MG/DL (0.70-1.30); GLOMERULAR FILTRATION RATE > 90.0 (>60); MAGNESIUM LEVEL 1.8 MG/DL (1.8-2.4); POTASSIUM SERUM 3.5 MMOL/L (3.5-5.1); SODIUM LEVEL 137 MMOL/L (136-145)
[2025-02-01] MEDS: CALCIUM GLUCONATE 1,000 MG in DEXTROSE 5% (D5W) MINI-BAG PLU 100 ML IV ONE (07:38)
[2025-02-01] MEDS ORDERED: THIAMINE IV SCH (09:00)
[2025-02-01] MEDS ORDERED: MULTIVITAMIN ADULT IV SCH (09:00)
[2025-02-01] MEDS ORDERED: [UNRECOGNIZED DRUG - OTHER] IV SCH (09:00)
[2025-02-01] MEDS: ENOXAPARIN 40 MG/0.4 ML SYRINGE (J1650 PER 10MG) SC SCH (09:00)
[2025-02-01] MEDS ORDERED: FOLIC ACID IV SCH (09:00)
[2025-02-01] MEDS: THIAMINE IV SCH (09:41)
[2025-02-01] MEDS: FOLIC ACID IV SCH (09:41)
[2025-02-01] MEDS: [UNRECOGNIZED DRUG - OTHER] IV SCH (09:41)
[2025-02-01] MEDS: MULTIVITAMIN ADULT IV SCH (09:41)
[2025-02-01] MEDS: IPRATROPIUM 0.5 MG/ALBUTEROL 2.5 MG INH SOL UD 3 ML NEB ONE (20:48)
[2025-02-01] MEDS: ALBUTEROL SULFATE 2.5 MG/0.5 ML INH CONCENTRATE NEB SOLN NEB SCH (23:22)
[2025-02-02 03:33] VITALS: BP 140/100; TEMP 99.2; O2SAT 95
[2025-02-02 05:51] LABS: BASO # 0.0 10^3/uL (0.0-0.2); BASO % 0.1 % (0.0-1.0); EOS # 0.0 10^3/uL (0.0-0.5); EOS % 0.1 % (0.0-3.0); LYMPH # 1.0 10^3/uL (1.5-5.0); LYMPH % 6.9 % (24.0-44.0); MONO # 1.7 10^3/uL (0.0-0.8); MONO % 11.1 % (2.0-8.0); NEUTROPHILS # 12.0 10^3/uL (1.5-8.5); NEUTROPHILS % 81.2 % (36.0-66.0); PLATELET COUNT, AUTOMATED 183 10^3/uL (150-450)
[2025-02-02 06:22] LABS: ALT/SGPT 86 U/L (7.0-40); AST/SGOT 89 U/L (<34); CALCIUM LEVEL 6.3 MG/DL (8.5-10.1); CARBON DIOXIDE LEVEL 27 MMOL/L (20-31); CHLORIDE LEVEL 97 MMOL/L (98-107); CREATININE FOR GFR 0.56 MG/DL (0.70-1.30); GLOMERULAR FILTRATION RATE > 90.0 (>60); MAGNESIUM LEVEL 1.7 MG/DL (1.8-2.4); POTASSIUM SERUM 3.3 MMOL/L (3.5-5.1); SODIUM LEVEL 135 MMOL/L (136-145)
[2025-02-02 07:57] VITALS: BP 163/104; TEMP 99.5; O2SAT 95
[2025-02-02] MEDS: MAG SULF 1GM/100ML (MAG RUN) 1 GM in IV 1 EA IV SCH (08:28)
[2025-02-02] MEDS: POTASSIUM CHLORIDE 10MEQ SR TABLET PO ONE (09:31)
[2025-02-02] MEDS ORDERED: KCL 10MEQ/100ML SWI (KRUN) 10 MEQ in IV 1 EA IV SCH (10:00)
[2025-02-02 12:15] VITALS: BP 165/105; O2SAT 95
[2025-02-02] MEDS ORDERED: ALBUTEROL SULFATE 2.5 MG/0.5 ML INH CONCENTRATE NEB SOLN INH PRN (15:25)
[2025-02-02] MEDS: LEVOTHYROXINE 50 MCG TABLET (0.05 MG) PO SCH (15:36)
[2025-02-02] MEDS: buPROPion **XL** 150 MG TABLET PO SCH (15:36)
[2025-02-02] MEDS: LOSARTAN 50 MG TABLET PO SCH (15:38)
[2025-02-02 15:39] VITALS: BP 166/100; TEMP 97.9; O2SAT 94
[2025-02-02 20:08] VITALS: BP 146/87; TEMP 98.6; O2SAT 95
[2025-02-02] MEDS: MAGNESIUM OXIDE 400 MG TAB PO SCH (21:34)
[2025-02-02] MEDS: MONTELUKAST 10 MG TAB PO SCH (21:34)
[2025-02-03] VITALS (7 sets, daily range): BP systolic 144–158; BP diastolic 94–101; TEMP 97.9–100.6; O2SAT 95–97
[2025-02-03 06:10] LABS: BASO # 0.0 10^3/uL (0.0-0.2); BASO % 0.3 % (0.0-1.0); EOS # 0.1 10^3/uL (0.0-0.5); EOS % 0.5 % (0.0-3.0); LYMPH # 1.0 10^3/uL (1.5-5.0); LYMPH % 9.6 % (24.0-44.0); MONO # 1.3 10^3/uL (0.0-0.8); MONO % 11.8 % (2.0-8.0); NEUTROPHILS # 8.2 10^3/uL (1.5-8.5); NEUTROPHILS % 77.1 % (36.0-66.0); PLATELET COUNT, AUTOMATED 154 10^3/uL (150-450)
[2025-02-03 06:24] LABS: ALT/SGPT 155 U/L (7.0-40); AST/SGOT 178 U/L (<34); CALCIUM LEVEL 7.0 MG/DL (8.5-10.1); CARBON DIOXIDE LEVEL 23 MMOL/L (20-31); CHLORIDE LEVEL 102 MMOL/L (98-107); CREATININE FOR GFR 0.52 MG/DL (0.70-1.30); GLOMERULAR FILTRATION RATE > 90.0 (>60); MAGNESIUM LEVEL 2.3 MG/DL (1.8-2.4); POTASSIUM SERUM 3.2 MMOL/L (3.5-5.1); SODIUM LEVEL 137 MMOL/L (136-145)
[2025-02-03] MEDS: FOLIC ACID 1 MG TAB PO SCH (08:51)
[2025-02-03] MEDS: THIAMINE 100 MG TAB PO SCH (08:51)
[2025-02-03] MEDS: POTASSIUM CHLORIDE 10MEQ SR TABLET PO SCH (08:51)
[2025-02-03] MEDS: MULTIVITAMINS/MINERALS THERAP 1 TAB PO SCH (08:52)
[2025-02-03] MEDS: ALBUTEROL 90 MCG/ACT 8 GM HFA INHALER INH PRN (09:01)
[2025-02-04] VITALS (8 sets, daily range): BP systolic 135–164; BP diastolic 92–108; TEMP 99.9–101.2; O2SAT 96–98
[2025-02-04 07:00] LABS: BASO # 0.0 10^3/uL (0.0-0.2); BASO % 0.3 % (0.0-1.0); EOS # 0.2 10^3/uL (0.0-0.5); EOS % 1.5 % (0.0-3.0); LYMPH # 1.4 10^3/uL (1.5-5.0); LYMPH % 12.2 % (24.0-44.0); MONO # 1.8 10^3/uL (0.0-0.8); MONO % 15.1 % (2.0-8.0); NEUTROPHILS # 8.3 10^3/uL (1.5-8.5); NEUTROPHILS % 70.1 % (36.0-66.0); PLATELET COUNT, AUTOMATED 247 10^3/uL (150-450)
[2025-02-04 07:48] LABS: ALT/SGPT 311 U/L (7.0-40); AST/SGOT 269 U/L (<34); CALCIUM LEVEL 7.9 MG/DL (8.5-10.1); CARBON DIOXIDE LEVEL 27 MMOL/L (20-31); CHLORIDE LEVEL 100 MMOL/L (98-107); CREATININE FOR GFR 0.55 MG/DL (0.70-1.30); GLOMERULAR FILTRATION RATE > 90.0 (>60); MAGNESIUM LEVEL 2.0 MG/DL (1.8-2.4); POTASSIUM SERUM 3.0 MMOL/L (3.5-5.1); SODIUM LEVEL 140 MMOL/L (136-145)
[2025-02-04] MEDS: POTASSIUM CHLORIDE 10MEQ SR TABLET PO SCH (14:09)
[2025-02-04] MEDS: KETOROLAC 30 MG/ML 1 ML VIAL IV PRN (14:09)
[2025-02-04 17:11] LABS: CALCIUM LEVEL 8.0 MG/DL (8.5-10.1); CARBON DIOXIDE LEVEL 28 MMOL/L (20-31); CHLORIDE LEVEL 103 MMOL/L (98-107); CREATININE FOR GFR 0.57 MG/DL (0.70-1.30); GLOMERULAR FILTRATION RATE > 90.0 (>60); POTASSIUM SERUM 3.4 MMOL/L (3.5-5.1); SODIUM LEVEL 140 MMOL/L (136-145)
[2025-02-04] MEDS: POTASSIUM CHLORIDE 10MEQ SR TABLET PO ONE (20:33)
[2025-02-04 23:31] LABS: KETONE, URINE AUTO RFX TRACE mg/dL (NEGATIVE); LEUKOCYTE ESTERASE UR AUTO RFX NEGATIVE (NEGATIVE); MUCUS, URINE RFX SMALL (NEGATIVE); NITRITE, URINE AUTO RFX NEGATIVE (NEGATIVE); RBC, URINE AUTO RFX 5 /HPF (0-3); SQUAM EPITHELIAL CELL UR AURFX 0 /HPF (0-6); WBC, URINE AUTO RFX 1 /HPF (0-3)
[2025-02-05 01:48] VITALS: BP 147/103; TEMP 99.2; O2SAT 97
[2025-02-05 06:00] VITALS: BP 152/93; TEMP 98.7; O2SAT 98
[2025-02-05 07:14] LABS: BASO # 0.1 10^3/uL (0.0-0.2); BASO % 0.4 % (0.0-1.0); EOS # 0.4 10^3/uL (0.0-0.5); EOS % 3.2 % (0.0-3.0); LYMPH # 2.0 10^3/uL (1.5-5.0); LYMPH % 16.0 % (24.0-44.0); MONO # 1.9 10^3/uL (0.0-0.8); MONO % 15.4 % (2.0-8.0); NEUTROPHILS # 7.8 10^3/uL (1.5-8.5); NEUTROPHILS % 63.4 % (36.0-66.0); PLATELET COUNT, AUTOMATED 278 10^3/uL (150-450)
[2025-02-05 07:48] LABS: ALT/SGPT 331 U/L (7.0-40); AST/SGOT 198 U/L (<34); CALCIUM LEVEL 8.1 MG/DL (8.5-10.1); CARBON DIOXIDE LEVEL 26 MMOL/L (20-31); CHLORIDE LEVEL 104 MMOL/L (98-107); CREATININE FOR GFR 0.56 MG/DL (0.70-1.30); GLOMERULAR FILTRATION RATE > 90.0 (>60); MAGNESIUM LEVEL 1.8 MG/DL (1.8-2.4); POTASSIUM SERUM 3.5 MMOL/L (3.5-5.1); SODIUM LEVEL 142 MMOL/L (136-145)
[2025-02-05 10:00] VITALS: BP 144/90; TEMP 97.9; O2SAT 98
[2025-02-05] MEDS: BUPRENORPHINE/NALOXONE 8-2MG SUBLINGUAL TABLET(SUBOXONE) SL SCH (10:28)
[2025-02-05 14:00] VITALS: BP 145/98; TEMP 98.9; O2SAT 99
[2025-02-05 18:00] VITALS: BP 138/98; TEMP 98.4; O2SAT 97
[2025-02-05 22:11] VITALS: BP 141/94; TEMP 100.2; O2SAT 97
[2025-02-06 00:02] VITALS: BP 152/99; TEMP 99.2; O2SAT 95
[2025-02-06 06:33] VITALS: BP 154/96; TEMP 99.2; O2SAT 97
[2025-02-06 08:24] LABS: BASO # 0.1 10^3/uL (0.0-0.2); BASO % 0.6 % (0.0-1.0); EOS # 0.5 10^3/uL (0.0-0.5); EOS % 3.6 % (0.0-3.0); LYMPH # 1.6 10^3/uL (1.5-5.0); LYMPH % 11.9 % (24.0-44.0); MONO # 2.2 10^3/uL (0.0-0.8); MONO % 16.1 % (2.0-8.0); NEUTROPHILS # 8.5 10^3/uL (1.5-8.5); NEUTROPHILS % 63.1 % (36.0-66.0); PLATELET COUNT, AUTOMATED 342 10^3/uL (150-450)
[2025-02-06 09:06] LABS: ALT/SGPT 249 U/L (7.0-40); AST/SGOT 76 U/L (<34); CALCIUM LEVEL 8.3 MG/DL (8.5-10.1); CARBON DIOXIDE LEVEL 25 MMOL/L (20-31); CHLORIDE LEVEL 100 MMOL/L (98-107); CREATININE FOR GFR 0.54 MG/DL (0.70-1.30); GLOMERULAR FILTRATION RATE > 90.0 (>60); MAGNESIUM LEVEL 1.8 MG/DL (1.8-2.4); POTASSIUM SERUM 3.6 MMOL/L (3.5-5.1); SODIUM LEVEL 139 MMOL/L (136-145)
[2025-02-06] MEDS: PANTOPRAZOLE 40MG TAB PO SCH (09:55)
[2025-02-06] MEDS: MIRALAX *UNIT DOSE* 17 GM PACKET PO SCH (09:56)
[2025-02-06 10:02] VITALS: BP 150/110
[2025-02-06 11:32] VITALS: BP 151/101
[2025-02-06] MEDS: hydroCHLOROthiazide 25 MG TAB PO SCH (11:32)
[2025-02-06 12:35] VITALS: BP 142/96
[2025-02-06] MEDS ORDERED: ACETAMINOPHEN 325 MG TAB PO PRN (12:40)
[2025-02-06] MEDS ORDERED: FOLI1TAB11 PO (14:53)
[2025-02-06] MEDS ORDERED: KETO-204 PO (14:53)
[2025-02-06] MEDS ORDERED: THIA100T7 PO (14:53)
[2025-02-06] MEDS ORDERED: PANT20TA6 PO (14:53)
== END 2025-02-06 16:00 | disposition home or self-care (01) | DRG 282 ==
LOC: M ED 22:04 → M ED INP 01-31 06:01 → M MSPAV 01-31 14:48 → M PCU 01-31 18:42 → M MS5PR 02-03 12:45
PROVIDERS: ADMIT Student in an Organized Health Care Education/Training Program; ATTEND Internal Medicine Nephrology
DX: K85.20 Alcohol induced acute pancreatitis without necrosis or infection (principal); J45.909 Unspecified asthma, uncomplicated; F17.290 Nicotine dependence, other tobacco product, uncomplicated; F10.188 Alcohol abuse with other alcohol-induced disorder; E86.0 Dehydration; E83.51 Hypocalcemia; R74.01 Elevation of levels of liver transaminase levels; K56.7 Ileus, unspecified; F10.130 Alcohol abuse with withdrawal, uncomplicated; E87.6 Hypokalemia; R91.1 Solitary pulmonary nodule; I10 Essential (primary) hypertension; Z79.890 Hormone replacement therapy; Z79.899 Other long term (current) drug therapy; Z88.0 Allergy status to penicillin; R65.10 Systemic inflammatory response syndrome (SIRS) of non-infectious origin without acute organ dysfunction; J90 Pleural effusion, not elsewhere classified

== ENCOUNTER → 2025-02-22 | Outpatient (REF) | payer OTHER ==
[~2025-02-22] MED LIST changes: +ALBU2.5V10 INH; +ALBU8.5H INH; +BUPR-766 PO; +BUPR1FIL SL; +FOLI1TAB11 PO; +HYDR-3490 PO; +KETO-204 PO; +LEVO50TA5 PO; +LOSA100T46 PO; +PANT20TA6 PO; +THIA100T7 PO
[2025-02-22 13:59] LABS: BASO # 0.1 10^3/uL (0.0-0.2); BASO % 1.4 % (0.0-1.0); EOS # 0.3 10^3/uL (0.0-0.5); EOS % 5.4 % (0.0-3.0); LYMPH # 2.2 10^3/uL (1.5-5.0); LYMPH % 43.2 % (24.0-44.0); MONO # 0.5 10^3/uL (0.0-0.8); MONO % 10.5 % (2.0-8.0); NEUTROPHILS # 2.0 10^3/uL (1.5-8.5); NEUTROPHILS % 39.3 % (36.0-66.0); PLATELET COUNT, AUTOMATED 437 10^3/uL (150-450); VITAMIN B12 LEVEL 935 PG/ML (211-911)
[2025-02-22 14:11] LABS: ALT/SGPT 66 U/L (7.0-40); AST/SGOT 42 U/L (<34); CALCIUM LEVEL 9.6 MG/DL (8.5-10.1); CARBON DIOXIDE LEVEL 31 MMOL/L (20-31); CHLORIDE LEVEL 103 MMOL/L (98-107); CREATININE FOR GFR 0.83 MG/DL (0.70-1.30); GLOMERULAR FILTRATION RATE > 90.0 (>60); MAGNESIUM LEVEL 2.0 MG/DL (1.8-2.4); POTASSIUM SERUM 4.0 MMOL/L (3.5-5.1); SODIUM LEVEL 142 MMOL/L (136-145)
== END ==
LOC: M LABDRWAD 13:02
PROVIDERS: ATTEND Physician Assistant
DX: E83.42 Hypomagnesemia (principal); F10.20 Alcohol dependence, uncomplicated; K85.20 Alcohol induced acute pancreatitis without necrosis or infection

== ENCOUNTER → 2025-03-07 | Outpatient (CLI) | payer OTHER | LOC: M CARPUL 10:16 | PROVIDERS: ATTEND Physician Assistant | DX: R06.2 Wheezing (principal) ==